=== PATIENT | male | born 1965 | race Hispanic/Latino ===

== ENCOUNTER 2017-11-12 16:05 | Emergency (ER) | payer BC ==
[~2017-11-12] VITALS: Ht 172.7 cm; Wt 79.4 kg
--- NOTE | 2017-11-12 17:02 | Diagnostic Imaging Report ---
PROCEDURE:X-RAY ABDOMEN - KUB COMPARISON:None. INDICATIONS:CONSTIPATION, LOWER BACK PAIN FINDINGS: There are no dilated loops of bowel to suggest obstruction. There are no masses or abnormal calcifications. There is no evidence of free air. No acute osseous abnormalities are present. Focal mild to moderate degenerative changes at L4-L5, likely at the facets. CONCLUSION: 1. No acute abdominal abnormality. 2. Focal moderate degenerative changes at L4-L5, likely the facet joints. Dictated by: Juan J Pham M.D. on 11/12/2017 at 17:04 Electronically approved by: Juan J Pham M.D. on 11/12/2017 at 17:04
[2017-11-12] MEDS ORDERED: MINERAL OIL 132 ML BTL PR ONE (17:15)
[2017-11-12] MEDS ORDERED: KETOROLAC TROMETHAMINE 60 MG/2 ML VIAL IM ONE (19:00)
[2017-11-12 19:04] VITALS: BP 125/88
== END 2017-11-12 19:23 | disposition home or self-care (01) ==
LOC: ER 16:05
DX: R10.31 Right lower quadrant pain (principal); R10.32 Left lower quadrant pain; K59.00 Constipation, unspecified
CPT/HCPCS: 74018; 99283; J1885